=== PATIENT | female | born 1990 | race Caucasian/White ===

== ENCOUNTER 2016-11-17 23:48 | Emergency (ER) | payer MEDICAID ==
[~2016-11-17] VITALS: Ht 165.1 cm; Wt 92.1 kg
[2016-11-17 23:52] VITALS: BP 155/92
--- NOTE | 2016-11-18 00:13 | NUR ---
PT TAKEN TO BED 4
--- NOTE | 2016-11-18 00:15 | NUR ---
PATIENT PRESENTS TO ED WITH C/O ABD PAIN, N/V/D X 1 1/2 WEEKS. SKIN IS PINK/WARM/DRY; AAOX4 WITH EVEN AND STEADY GAIT; LUNGS CLEAR BL; HR EVEN AND REGULAR; PT DENIES ANY FEVER, CP, SOB, OR COUGH AT THIS TIME; PATIENT STATES PAIN OF 7/10 AT THIS TIME; VSS; PATIENT POSITIONED FOR COMFORT; HOB ELEVATED; BEDRAILS UP X2; BED DOWN. ER MD MADE AWARE OF PT STATUS.
--- NOTE | 2016-11-18 00:54 | NUR ---
Dr. Wan evaluating patient at bedside.
[2016-11-18] MEDS ORDERED: KETOROLAC 60 MG/2 ML VIAL IM ONE (01:00)
[2016-11-18] MEDS ORDERED: ONDANSETRON 4 MG ODT PO ONE (01:00)
--- NOTE | 2016-11-18 01:14 | NUR ---
IM/PO MEDS GIVE-NADR AT THIS TIME.
[2016-11-18 01:50] VITALS: BP 117/79
--- NOTE | 2016-11-18 02:28 | NUR ---
Patient discharged with v/s stable. Written and verbal after care instructions given and explained. Patient verbalized understanding. Ambulatory with steady gait. All questions addressed prior to discharge. Advised to follow up with PMD.
== END 2016-11-18 02:28 | disposition home or self-care (01) ==
LOC: MED 23:48
DX: R10.32 Left lower quadrant pain (principal); R10.13 Epigastric pain; R11.2 Nausea with vomiting, unspecified; R19.7 Diarrhea, unspecified; I10 Essential (primary) hypertension; Z86.19 Personal history of other infectious and parasitic diseases
CPT/HCPCS: 81002; 81025; 96372; 99283; J1885; S0119

== ENCOUNTER 2018-06-26 18:24 | Emergency (ER) | payer MEDICAID ==
[~2018-06-26] VITALS: Ht 172.7 cm; Wt 94.3 kg
[2018-06-26 18:35] VITALS: BP 149/88
--- NOTE | 2018-06-26 18:49 | NUR ---
wheel chair assisted to bed1
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
--- NOTE | 2018-06-26 18:54 | NUR ---
X-RAY AT BEDSIDE
[2018-06-26] MEDS ORDERED: KETOROLAC 30 MG/ML VIAL IM ONE (19:15)
[2018-06-26] MEDS ORDERED: HYDROcodone/APAP 5/325 MG 1 TAB TAB PO ONE (19:15)
--- NOTE | 2018-06-26 19:30 | NUR ---
PT'S SIGNIFICANT OTHER AT BEDSIDE. PT SITTING ON CHAIR WITH R FOOT ELEVATED ON BED. PT REPORTS 8/10 R ANKLE PAIN AT THIS TIME. R ANKLE SWELLING NOTED WITH R LATERAL BRUISING, TENDER TO TOUCH, +CIRCULATION, +SENSATION, DECREASED ROM DUE TO PAIN/SWELLING. ALL NEEDS MET AT THIS TIME.
--- NOTE | 2018-06-26 19:36 | NUR ---
ICE PACK APPLIED TO PT R ANKLE
--- NOTE | 2018-06-26 19:43 | NUR ---
R POSTERIOR SHORT SPLINT APPLIED TO PT R ANKLE, WRAPPED WITH SURAJ BANDAGES. +CSM
[2018-06-26 19:44] VITALS: BP 130/75
--- NOTE | 2018-06-26 19:44 | NUR ---
Patient discharged with v/s stable. Written and verbal after care instructions given and explained. Patient alert, oriented and verbalized understanding of instructions. Ambulatory with steady gait. All questions addressed prior to discharge. ID band removed. Patient advised to follow up with PMD. Rx of NAPROSYN AND NORCO given. Patient educated on indication of medication including possible reaction and side effects. Opportunity to ask questions provided and answered.
--- NOTE | 2018-06-26 19:49 | NUR ---
PT GIVEN CRUTCHES AND PROPER INSTRUCTIONS FOR SAFE USE. CRUTCHES FITTED TO PT HEIGHT WITH TWO INCH SPACE BETWEEN ARMPIT AND CRUTCH PAD, AND HANDLES RESTING AT WRIST. PT DEMONSTRATED PROPER USE FOR APPROXIMATELY 20 FEET AND INTRUCTIONS WERE GIVEN REGARDING SITTING/STANDING POSITION AND ASCENDING/DESCENDING STAIRS.
== END 2018-06-26 19:44 | disposition home or self-care (01) ==
LOC: MED 18:24
DX: S82.61XA Displaced fracture of lateral malleolus of right fibula, initial encounter for closed fracture (principal); I10 Essential (primary) hypertension; Z88.8 Allergy status to other drugs, medicaments and biological substances; X58.XXXA Exposure to other specified factors, initial encounter; Y93.89 Activity, other specified; Y92.89 Other specified places as the place of occurrence of the external cause; Y99.8 Other external cause status
CPT/HCPCS: 29515; 73610; 81002; 81025; 96372; 99283; J1885; Q0092